=== PATIENT | female | born 1955 | race African-American/Black ===

== ENCOUNTER → 2016-08-25 | Outpatient (CLI) | payer BC ==
[~2016-08-25] MED LIST: ACET-2321 PO; MULT-1198 PO; POLY17PO18 PO; RIVA20TA PO; TRAM50TA53 PO
[2016-08-25 14:09] LABS: BASOPHILS % (AUTO) 0.8 % (0-2); EOSINOPHILS # (AUTO) 0.2 T/MM3 (0-0.5); EOSINOPHILS % (AUTO) 4.5 % (0-4); HCT - HEMATOCRIT 44.3 % (36-46); HGB - HEMOGLOBIN 14.3 GM/DL (12-16); LYMPHOCYTES # (AUTO) 1.7 T/MM3 (1-4.8); LYMPHOCYTES % (AUTO) 46.5 % (23-45); MEAN CORPUSCULAR HGB 27.8 UUG (26-34); MEAN CORPUSCULAR HGB CONC(MCHC 32.3 GM/DL (31-37); MEAN PLATELET VOLUME 12.2 UM3 (9.4-12.4); MONOCYTES # (AUTO) 0.3 T/MM3 (0-0.8); NEUTROPHILS #(AUTO)-ABSOLUTE 1.5 T/MM3 (1.8-7.7); NEUTROPHILS % (AUTO) 41.2 % (33-66); RED BLOOD COUNT 5.15 M/MM3 (4.00-5.20); WBC - WHITE BLOOD COUNT 3.6 T/MM3 (4.5-11.0)
[2016-08-25 14:17] LABS: ALBUMIN 4.9 G/DL (3.5-5.0); ALBUMIN/GLOBULIN RATIO 1.5 RATIO (1.1-2.2); ALKALINE PHOSPHATASE 80 U/L (38-126); ALT (SGPT) 48 U/L (9-52); ANION GAP 16 MEQ/L (5-15); AST (SGOT) 26 U/L (14-36); BUN/CREATININE RATIO 23 RATIO (6-26); C-REACTIVE PROTEIN < 5.0 MG/L (0-9); CALCIUM 10.6 MG/DL (8.4-10.2); CHLORIDE 102 MEQ/L (98-107); CO2 - CARBON DIOXIDE 29 MEQ/L (22-30); CREATININE 1.1 MG/DL (0.7-1.2); GLOMERULAR FILTRATION RATE 50; GLUCOSE 91 MG/DL (65-110); LDH 507 U/L (313-618); POTASSIUM 4.2 MEQ/L (3.6-5); SODIUM 147 MEQ/L (134-144); TOTAL PROTEIN 8.2 G/DL (6.3-8.2)
[2016-08-25 14:40] LABS: HEMOGLOBIN A1C 5.7 % (6.1-7.9)
== END ==
LOC: LAB 13:34
PROVIDERS: ATTEND Ophthalmology
DX: J68.0 Bronchitis and pneumonitis due to chemicals, gases, fumes and vapors (principal); T65.91XA Toxic effect of unspecified substance, accidental (unintentional), initial encounter; Y92.9 Unspecified place or not applicable
CPT/HCPCS: 36415; 80053; 82728; 83036; 83090; 83615; 85025; 85384; 85652; 86140